=== PATIENT | female | born 1945 | race Caucasian/White ===

== ENCOUNTER 2017-02-19 14:32 | Emergency (ER) | payer MEDICARE, OTHER ==
[~2017-02-19] VITALS: Ht 160 cm; Wt 76.1 kg
[2017-02-19 14:35] VITALS: Ht 160 cm; Wt 76.1 kg
[2017-02-19] MEDS ORDERED: KETOROLAC 15 MG INJ IV STA (15:43)
[2017-02-19] MEDS ORDERED: SOD CHLORIDE 0.9% 500 ML IV STA (15:43)
--- NOTE | 2017-02-19 16:12 | RADRPT ---
PROCEDURE: XR Chest. CLINICAL INDICATION: 71-year-old female with abdominal pain. TECHNIQUE: Single frontal view of the chest was obtained. COMPARISON: None FINDINGS: The soft tissues are generous. There are osteophytes in the thoracic spine. The heart, cardiomedia stinal silhouette and hilar structures are normal. The pulmonary vasculature is normal. There is a left-sided aorta. The lungs are clear. The costophrenic angles are normal. IMPRESSION: 1. There is no evidence of active cardiopulmonary disease. 2. There is no evidence of pneumoperitoneum. 3. Spondylosis of the thoracic spine. RPTAT:AAJJ Physician Jordi Date Time Electronically viewed and signed by Physician Jordi on 02/19/2017 16:12 /
[2017-02-19 16:14] LABS: ADD UMIC NO; UR ASCORBIC ACID 40 mg/dL (NEGATIVE); UR BILIRUBIN (Dip) NEGATIVE (NEGATIVE); UR BLOOD (Dip) NEGATIVE (NEGATIVE); UR CLARITY SLIGHTLY CLOUDY (CLEAR); UR COLOR YELLOW (YELLOW); UR GLUCOSE (Dip) NEGATIVE (NEGATIVE); UR KETONES (Dip) NEGATIVE (NEGATIVE); UR LEUKOCYTE ESTERASE (Dip) NEGATIVE Leu/ul (NEGATIVE); UR NITRITE (Dip) NEGATIVE (NEGATIVE); UR RBC 2 /HPF (0-5); UR SPECIFIC GRAVITY (Dip) 1.008 (1.003-1.030); UR TOTAL PROTEIN (Dip) NEGATIVE (NEGATIVE); UR UROBILINOGEN (Dip) NEGATIVE (NEGATIVE)
[2017-02-19 16:31] LABS: BASOPHIL # 0.1 10^3/ul (0.0-0.1); BASOPHILS % 0.7 % (0.0-2.0); EOSINOPHILS # 0.7 10^3/ul (0.0-0.5); EOSINOPHILS % 6.3 % (0.0-7.0); HEMATOCRIT 39.7 % (37.0-47.0); HEMOGLOBIN 12.8 g/dl (12.0-16.0); LYMPHOCYTES # 1.8 10^3/ul (0.8-2.9); LYMPHOCYTES % 16.5 % (15.0-51.0); MEAN CORPUSCULAR HGB CONC 32.2 g/dl (32.0-37.0); MEAN CORPUSCULAR VOLUME 86.9 fl (82.0-101.0); MEAN PLATELET VOLUME 9.6 fl (7.4-10.4); MONOCYTE # 0.8 10^3/ul (0.3-0.9); MONOCYTES % 7.3 % (0.0-11.0); NEUTROPHIL # 7.4 10^3/ul (1.6-7.5); NEUTROPHILS % 68.9 % (39.0-77.0); PLATELET COUNT 269 10^3/UL (140-415); RED BLOOD COUNT 4.57 10^6/ul (4.20-5.40); RED CELL DISTRIBUTION WIDTH 12.6 % (11.5-14.5); WHITE BLOOD COUNT 10.7 10^3/ul (4.8-10.8)
[2017-02-19 16:53] LABS: ALANINE AMINOTRANSFERASE 37 IU/L (13-69); ALBUMIN 4.1 g/dl (3.3-4.9); ALBUMIN/GLOBULIN RATIO 1.02; ALKALINE PHOSPHATASE 78 IU/L (42-121); ANION GAP 15 (8-16); ASPARTATE AMINO TRANSFERASE 36 IU/L (15-46); BILIRUBIN,INDIRECT 0.5 mg/dl (0-1.1); BILIRUBIN,TOTAL 0.5 mg/dl (0.2-1.3); BLOOD UREA NITROGEN 16 mg/dl (7-20); CALCIUM 10.2 mg/dl (8.4-10.2); CARBON DIOXIDE 31 mmol/L (21-31); CHLORIDE 101 mmol/L (97-110); CREATININE 1.06 mg/dl (0.44-1.00); GLUCOSE 74 mg/dl (70-220); POTASSIUM 4.8 mmol/L (3.5-5.1); SODIUM 142 mmol/L (135-144); TOTAL PROTEIN 8.1 g/dl (6.1-8.1)
--- NOTE | 2017-02-19 17:03 | ERD ---
ER Documentation Chief Complaint Chief Complaint Complains of a cough x 3 days HPI 71-year-old woman complains of cough 3 days and tactile fever since last night. She states she is currently using antibiotics for recently diagnosed urinary tract infection. She denies dysuria or hematuria at this time, no chest pain or shortness of breath, no vomiting or diarrhea, no headache or blurry vision. ROS All systems reviewed and are negative except as per history of present illness. Medications Home Meds Active Scripts Ibuprofen* (Ibuprofen*) 600 Mg Tablet, 600 MG PO Q8 for PAIN AND/OR INFLAMMATION , #30 TAB Prov:BHAVNA SMITH MD 02/19/17 Albuterol Sulfate* (Proair HFA*) 8.5 Gm Hfa.aer.ad, 2 PUFF INH Q6H Y for COUGH, #1 INHALER Prov:BHAVNA SMITH MD 02/19/17 Reported Medications Econazole Nitrate (Econazole Nitrate) 15 Gm Cream..g., 15 GM TP BID 02/19/17 Metformin* (Glucophage*) 500 Mg Tab, 750 MG PO QPM, #60 TAB 02/19/17 Tramadol Hcl* (Ultram*) 50 Mg Tablet, 50 MG PO Q6H Y for PAIN, TAB 02/19/17 Latanoprost (Latanoprost) 2.5 Ml Drops, 1 DROP BOTH EYES QHS, #1 BOTTLE 02/19/17 Fluticasone Propionate* (Fluticasone Propionate* Nasal) 50 Mcg/Elim - 16 Gm Elim.susp, 2 SPRAYS NASAL DAILY, #1 BOTTLE TO EACH NOSTRIL 02/19/17 Losartan Potassium* (Losartan Potassium*) 50 Mg Tablet, 50 MG PO DAILY, TAB 02/19/17 Simvastatin* (Zocor*) 20 Mg Tablet, 20 MG PO QHS, #30 TAB 02/19/17 Aspirin* (Aspirin* Chew) 81 Mg Tab.chew, 81 MG PO DAILY, TAB.CHEW 02/19/17 Gabapentin* (Gabapentin*) 300 Mg Capsule, 300 MG PO BID, #90 CAP 02/19/17 NPH, Human Insulin Isophane (Humulin N Kwikpen) 100 Unit/1 Ml Insuln.pen, 20 UNIT SQ BID, EA 02/19/17 Calcium/Vitamin D (Oyster Shell W/Vit D) 1 Tab Tab, 1 TAB PO BID, TAB 02/19/17 Allergies Allergies: Coded Allergies: No Known Allergy (Unverified , 06/14/12) PMhx/Soc Dyslipidemia, diabetes mellitus, hypertension, gastritis History of Surgery: No Anesthesia Reaction: No Hx Neurological Disorder: No Hx Cardiac Disorders: Yes (HTN, HIGH CHOLESTEROL) Hx Miscellaneous Medical Probl: Yes (DIABETES, CHRONIC BACK PAIN) Hx Alcohol Use: No Hx Substance Use: No Hx Tobacco Use: No Smoking Status: Former smoker FmHx Family History: No diabetes Physical Exam Vitals Vital Signs Date Time Temp Pulse Resp B/P Pulse Ox O2 Delivery O2 Flow Rate FiO2 02/19/17 18:05 83 14 121/58 99 Room Air 02/19/17 16:31 72 16 152/57 97 Room Air 02/19/17 14:35 98.1 94 20 113/59 97 Physical Exam GENERAL: Well-developed, well-nourished, well-hydrated, in no apparent distress , looks nontoxic in appearance HEENT: Moist mucous membranes, pink conjunctiva, no cervical spine tenderness or step-off deformities, no goiter, no jaundice or icterus, extraocular movements intact without pain. No submandibular induration, and no pharyngeal erythema NEURO: Alert and oriented 3, cranial nerves II through XII intact bilaterally, pupils equal round reactive to light, no focal deficits or facial asymmetry, sensation intact distally Strength 5/5 in upper and lower extremities bilaterally CARDIAC: Regular rate and rhythm, no murmurs rubs or gallops LUNGS: Clear bilaterally no wheezing crackles or stridor ABDOMEN: Soft nontender, no guarding, no rigidity, no rebound, no psoas sign no obturator sign. Normoactive bowel sounds SKIN: Warm and dry to touch, no abrasions, contusions, or hematomas, no lacerations, no ecchymosis, no target lesions, and without ulcers EXTREMITIES: No clubbing cyanosis or edema, calves are bilaterally symmetrical, no Homans sign, no popliteal cord sign. Distal pulses equal and bilateral PSYCH: Normal affect without agitation or irritability Result Diagram: 02/19/17 1548 02/19/17 1548 Results 24 hrs Laboratory Tests Test 02/19/17 15:48 02/19/17 16:00 White Blood Count 10.710^3/ul Red Blood Count 4.5710^6/ul Hemoglobin 12.8g/dl Hematocrit 39.7% Mean Corpuscular Volume 86.9fl Mean Corpuscular Hemoglobin 28.0pg Mean Corpuscular Hemoglobin Concent 32.2g/dl Red Cell Distribution Width 12.6% Platelet Count 47022^3/UL Mean Platelet Volume 9.6fl Neutrophils % 68.9% Lymphocytes % 16.5% Monocytes % 7.3% Eosinophils % 6.3% Basophils % 0.7% Nucleated Red Blood Cells % 0.0/100WBC Neutrophils # 7.410^3/ul Lymphocytes # 1.810^3/ul Monocytes # 0.810^3/ul Eosinophils # 0.710^3/ul Basophils # 0.110^3/ul Nucleated Red Blood Cells # 0.010^3/ul Sodium Level 142mmol/L Potassium Level 4.8mmol/L Chloride Level 101mmol/L Carbon Dioxide Level 31mmol/L Anion Gap 15 Blood Urea Nitrogen 16mg/dl Creatinine 1.06mg/dl Glucose Level 74mg/dl Calcium Level 10.2mg/dl Total Bilirubin 0.5mg/dl Direct Bilirubin 0.00mg/dl Indirect Bilirubin 0.5mg/dl Aspartate Amino Transf (AST/SGOT) 36IU/L Alanine Aminotransferase (ALT/SGPT) 37IU/L Alkaline Phosphatase 78IU/L Troponin I < 0.012ng/ml Total Protein 8.1g/dl Albumin 4.1g/dl Globulin 4.00g/dl Albumin/Globulin Ratio 1.02 Lipase 102U/L Urine Color YELLOW Urine Clarity SLIGHTLY CLOUDY Urine pH 6.0 Urine Specific [place] 1.008 Urine Ketones NEGATIVEmg/dL Urine Nitrite NEGATIVEmg/dL Urine Bilirubin NEGATIVEmg/dL Urine Urobilinogen NEGATIVEmg/dL Urine Leukocyte Esterase NEGATIVELeu/ul Urine Microscopic RBC 2/HPF Urine Microscopic WBC 1/HPF Urine Hemoglobin NEGATIVEmg/dL Urine Glucose NEGATIVEmg/dL Urine Total Protein NEGATIVEmg/dl Current Medications Medications (Trade) Dose Ordered Sig/Ebony Route PRN Reason Start Time Stop Time Status Last Admin Dose Admin Sodium Chloride (NS) 500 ml @ 500 mls/hr Q1H STAT IV 02/19/17 15:43 02/19/17 16:42 DC 02/19/17 16:23 Ketorolac Tromethamine (Toradol) 15 mg ONCE STAT IV 02/19/17 15:43 02/19/17 15:44 DC 02/19/17 16:23 Procedures/MDM IV line was established patient was placed on product handler rhythm strip revealed a sinus rhythm at about 80 bpm with upright P and T waves. Patient was afebrile EKG performed, read by me revealed a normal sinus rhythm at 78 bpm, left axis deviation, narrow QRS complex, no concerning ST elevations or depressions noted. Chest X-ray 1V Interpreted by me: Soft Tissue: No acute abnormalities Bones: No acute abnormalities Mediastinum/Cardiac Silhouette/Lungs: No acute abnormalities CBC and electrolytes are normal, liver function tests are normal, troponin was negative. Urine analysis was negative for infection. I administered 1 L normal saline intravenously and Toradol 15 mg IV with good response. Patient also received albuterol 5 mg via nebulizer for cough. Differential diagnoses considered, included but not limited to acute coronary syndrome, pulmonary embolism, aortic dissection, abdominal aortic aneurysm, sepsis, stroke, meningitis, encephalitis, pneumonia, appendicitis, cholecystitis , bowel obstruction, pyelonephritis, nephrolithiasis, cystitis, as well as metabolic, hematologic, and electrolyte abnormalities. As well as abscess, cellulitis, fractures, and dislocations. Patient feels much better at this time, and vital signs are normal, symptoms have improved. I did give strict instructions to return to the ED if symptoms continue or worsen, patient will otherwise follow-up with primary care physician. Patient understood instructions and agreed to plan. Disclaimer: Inadvertent spelling and grammatical errors are likely due to EHR/ dictation software use and do not reflect on the overall quality of patient care. Also, please note that the electronic time recorded on this note does not necessarily reflect the actual time of the patient encounter. Departure Diagnosis: Primary Impression: Acute bronchitis Bronchitis organism: unspecified organism Qualified Code: J20.9 - Acute bronchitis, unspecified organism Condition: BHAVNA Morgan MD Feb 19, 2017 17:03
[2017-02-19] MEDS ORDERED: ALBU8.5H3 INH (17:05)
[2017-02-19] MEDS ORDERED: IBUP-1542 PO (17:05)
[2017-02-19 17:07] LABS: TROPONIN-I < 0.012 ng/ml (0.00-0.12)
[2017-02-19] MEDS ORDERED: OSCAL PO (17:48)
[2017-02-19] MEDS ORDERED: SIMV20TA PO (17:49)
[2017-02-19] MEDS ORDERED: GABA300C16 PO (17:49)
[2017-02-19] MEDS ORDERED: NPH,100I5 SQ (17:49)
[2017-02-19] MEDS ORDERED: ASPI81TA3 PO (17:49)
[2017-02-19] MEDS ORDERED: LOSA50TA6 PO (17:50)
[2017-02-19] MEDS ORDERED: FLUT16SP17 NASAL (17:51)
[2017-02-19] MEDS ORDERED: LATA2.5D2 BOTH EYES (17:51)
[2017-02-19] MEDS ORDERED: TRAM-40 PO (17:52)
[2017-02-19] MEDS ORDERED: METF500T4 PO (17:52)
[2017-02-19] MEDS ORDERED: ECON15CR TP (17:53)
[2017-02-19 18:05] VITALS: BP 121/58; PULSE 83; RESP 14
== END 2017-02-19 18:05 | disposition home or self-care (01) ==
LOC: E/R 14:32
DX: J20.9 Acute bronchitis, unspecified (principal); E11.9 Type 2 diabetes mellitus without complications; I10 Essential (primary) hypertension; Z79.82 Long term (current) use of aspirin; Z87.891 Personal history of nicotine dependence
CPT/HCPCS: 36415; 71010; 80053; 81001; 83690; 84484; 85025; 93005; 96374; 99285; J1885; J7040; 81003

== ENCOUNTER 2017-04-06 18:43 | Emergency (ER) | END 2017-04-07 02:10 | disposition home or self-care (01) ==

== ENCOUNTER 2017-06-16 11:39 | Emergency (ER) | END 2017-06-16 20:36 | disposition home or self-care (01) ==

== ENCOUNTER 2017-12-14 14:55 | Emergency (ER) | END 2017-12-14 19:17 | disposition home or self-care (01) ==

== ENCOUNTER 2018-07-31 10:03 | Observation (INO) | payer OTHER ==
[~2018-07-31] VITALS: Ht 142.2 cm; Wt 72.5 kg
[~2018-07-31 10:03] MED LIST: ACET325T33 PO; ALBU8.5H8 INH; ASPI-903 PO; CIPR500T4 PO; DIPH1TAB PO; ECON15CR TP; FLUT16SP17 NASAL; GABA300C16 PO; HYDR-4011 PO; IBUP-1542 PO; IBUP-1561 PO; LATA2.5D2 BOTH EYES; LOSA50TA14 PO; METF-849 PO; METR500T PO; NPH,100I5 SQ; OSCAL PO; SIMV20TA PO; TRAM50TA PO
[2018-07-31 10:12] VITALS: Ht 142.2 cm; Wt 72.5 kg
--- NOTE | 2018-07-31 11:17 | ERD ---
ER Documentation Chief Complaint Chief Complaint fainted HPI The patient is a 72-year-old female, presenting to the ER because she had a syncopal episode last night around 7 PM, sustained facial abrasion and a laceration in the in the upper lip, complains of left hip pain and bilateral knee discomfort. She did not go to the hospital yesterday, stated that she had 3 syncopal episode last year, denies seizure, neck pain, chest pain, dyspnea, abdominal pain, vomiting, dysuria, diarrhea, fecal/urinary incontinence. She smokes socially, denies drinking Past medical history: Diabetes mellitus, hypertension, dyslipidemia Past surgical history: None ROS All systems reviewed and are negative except as per history of present illness. Medications Home Meds Active Scripts Acetaminophen* (Tylenol*) 325 Mg Tablet, 1 TAB PO Q6 PRN for PAIN AND OR ELEVATED TEMP, #20 TAB Prov:DORA LORENZ PA-C 12/14/17 Ibuprofen* (Motrin*) 400 Mg Tab, 400 MG PO Q6H PRN for PAIN AND OR ELEVATED TEMP, #30 TAB Prov:DORA LORENZ PA-C 12/14/17 Metronidazole* (Flagyl*) 500 Mg Tablet, 500 MG PO TID for 7 Days, TAB Prov:NONA BAEZA DO 06/16/17 Ciprofloxacin Hcl* (Ciprofloxacin Hcl*) 500 Mg Tablet, 500 MG PO BID for 7 Days, TAB Prov:NONA BAEZA DO 06/16/17 Diphenoxylate HCl/Atropine (Lomotil 2.5-0.025 mg Tablet) 1 Each Tablet, 1 TAB PO Q6H PRN for DIARRHEA, #14 TAB Prov:NONA BAEZA DO 06/16/17 Hydrocodone/Acetaminophen ([place] 5-325 Tablet) 1 Each Tablet, 1 TAB PO Q6H PRN for PAIN, #20 TAB Prov:MARYANNE SIMONS 04/07/17 Ibuprofen* (Ibuprofen*) 600 Mg Tablet, 600 MG PO Q8 for PAIN AND/OR INFLAMMATION, #30 TAB Prov:BHAVNA SMITH MD 02/19/17 Albuterol Sulfate* (Proair HFA*) 8.5 Gm Hfa.aer.ad, 2 PUFF INH Q6H PRN for COUGH, #1 INHALER Prov:BHAVNA SMITH MD 02/19/17 Reported Medications Econazole Nitrate (Econazole Nitrate) 15 Gm Cream..g., 15 GM TP BID 02/19/17 Metformin* (Glucophage*) 500 Mg Tab, 750 MG PO QPM, #60 TAB 02/19/17 Tramadol Hcl* (Ultram*) 50 Mg Tablet, 50 MG PO Q6H PRN for PAIN, TAB 02/19/17 Latanoprost (Latanoprost) 2.5 Ml Drops, 1 DROP BOTH EYES QHS, #1 BOTTLE 02/19/17 Fluticasone Propionate* (Fluticasone Propionate* Nasal) 50 Mcg/Flagler - 16 Gm [place].susp, 2 SPRAYS NASAL DAILY, #1 BOTTLE TO EACH NOSTRIL 02/19/17 Losartan Potassium* (Losartan Potassium*) 50 Mg Tablet, 50 MG PO DAILY, TAB 02/19/17 Simvastatin* (Zocor*) 20 Mg Tablet, 20 MG PO QHS, #30 TAB 02/19/17 Aspirin* (Aspirin* Chew) 81 Mg Tab.chew, 81 MG PO DAILY, TAB.CHEW 02/19/17 Gabapentin* (Gabapentin*) 300 Mg Capsule, 300 MG PO BID, #90 CAP 02/19/17 NPH, Human Insulin Isophane (Humulin N Kwikpen) 100 Unit/1 Ml Insuln.pen, 20 UNIT SQ BID, EA 02/19/17 Calcium/Vitamin D (Oyster Shell W/Vit D) 1 Tab Tab, 1 TAB PO BID, TAB 02/19/17 Allergies Allergies: Coded Allergies: No Known Allergy (Unverified , 12/14/17) PMhx/Soc History of Surgery: Yes Anesthesia Reaction: No Hx Neurological Disorder: No Hx Respiratory Disorders: No Hx Cardiac Disorders: Yes (HTN;diabetes mellitus) Hx Psychiatric Problems: No Hx Miscellaneous Medical Probl: Yes Hx Alcohol Use: No Hx Substance Use: No Hx Tobacco Use: No Physical Exam Vitals Vital Signs Date Temp Pulse Resp B/P (MAP) Pulse Ox O2 O2 Flow FiO2 Time Delivery Rate 07/31/18 76 17 115/67 100 Room Air 12:29 (83) 07/31/18 97.6 98 18 121/71 98 10:12 (88) Physical Exam Const: No acute distress. Head: Atraumatic. Nasal and upper lip abrasion Eyes: Normal Conjunctiva. ENT: Normal External Ears, Nose and Mouth. Small laceration inner upper lip with mild edema Neck: Full range of motion. No meningismus. Resp: Clear to auscultation bilaterally. Cardio: Regular rate and rhythm. Abd: Soft, non distended, normal bowel sounds, non tender. Skin: No petechiae or rashes. Back: No midline or flank tenderness. Ext: Left hip mild tenderness, left knee abrasion Neur: Awake and alert. No focal deficit Psych: Normal Mood and Affect. Result Diagram: 07/31/18 1151 Results 24 hrs Laboratory Tests Test 07/31/18 11:49 07/31/18 11:51 Bedside Glucose 174 mg/dL White Blood Count 7.1 10^3/ul Red Blood Count 4.64 10^6/ul Hemoglobin 13.0 g/dl Hematocrit 39.6 % Mean Corpuscular Volume 85.3 fl Mean Corpuscular Hemoglobin 28.0 pg Mean Corpuscular Hemoglobin Concent 32.8 g/dl Red Cell Distribution Width 12.4 % Platelet Count 234 10^3/UL Mean Platelet Volume 10.5 fl Immature Granulocytes % 0.100 % Neutrophils % 62.3 % Lymphocytes % 27.3 % Monocytes % 7.2 % Eosinophils % 2.0 % Basophils % 1.1 % Nucleated Red Blood Cells % 0.0 /100WBC Immature Granulocytes # 0.010 10^3/ul Neutrophils # 4.4 10^3/ul Lymphocytes # 1.9 10^3/ul Monocytes # 0.5 10^3/ul Eosinophils # 0.1 10^3/ul Basophils # 0.1 10^3/ul Nucleated Red Blood Cells # 0.0 10^3/ul Current Medications Medications Dose Sig/Ebony Start Time Status Last (Trade) Ordered Route PRN Stop Time Admin Dose Reason Admin 650 mg Q6 PRN PO 07/31/18 Acetaminophen MILD 11:30 (Tylenol PAIN(1-3)OR Tab) ELEVATED TEMP Aspirin 81 mg DAILY PO 07/31/18 07/31/18 (Aspirin) 11:30 12:15 Gabapentin 300 mg BID PO 07/31/18 07/31/18 (Neurontin) 11:30 12:15 Latanoprost 1 drop QHS BOTH 07/31/18 (Xalatan) EYES 21:00 Losartan 50 mg DAILY PO 07/31/18 07/31/18 Potassium 11:30 12:16 (Cozaar) Metformin 750 mg QPM PO 07/31/18 HCl 21:00 (Glucophage) Tramadol 50 mg Q6H PRN 07/31/18 HCl PO PAIN 11:30 (Ultram) Insulin NOVOLOG WITH MEALS 07/31/18 07/31/18 Aspart *MODERATE* BEDTIME SC 12:00 12:20 (Novolog ALGORITHM Insulin Pen) Discontinue ONCE ONCE 07/31/18 DC Miscellaneous all previ... XX 12:00 07/31/18 12:01 Information (* Miscellaneous Pharmacy Order) 1 ea NOTE XX 07/31/18 Miscellaneous 12:30 Information Glucose 15 gm Q15M PRN 07/31/18 (Glutose) PO DECREASED 12:30 GLUCOSE Glucose 22.5 gm Q15M PRN 07/31/18 (Glutose) PO DECREASED 12:30 GLUCOSE Dextrose 25 ml Q15M PRN 07/31/18 (D50w IV DECREASED 12:30 Syringe) GLUCOSE Dextrose 50 ml Q15M PRN 07/31/18 (D50w IV DECREASED 12:30 Syringe) GLUCOSE Glucagon 1 mg Q15M PRN 07/31/18 (Glucagen) IM DECREASED 12:30 GLUCOSE Glucose 15 gm Q15M PRN 07/31/18 (Glutose) BUCCAL 12:30 DECREASED GLUCOSE Procedures/[place] [address] Radiology Main Line: [phone] DIAGNOSTIC IMAGING REPORT Patient: MURRAY SAMAYOA : 1945 Age: 72 Sex: F [facility]: [id number] [id number] DOS: 07/31/18 1126 Ordering MD: PINO CHEUNG MD Location: E/R Room/Bed: PROCEDURE: CT head CLINICAL INDICATION: Syncope TECHNIQUE: Contiguous 2.5 mm axial images were obtained from the vertex to the skull base. No intravenous contrast was administered. The calculated dose length product (DLP) = 634.23 mGy-cm. The CTDlvol = 39.64 mGy. One or more of the following dose reduction techniques were used: Automated exposure control, adjustment of the mA and or KV according to patient size, or use of iterative r econstruction technique. DICOM images are available. COMPARISON: 06/14/2012 FINDINGS: There is no acute intracranial hemorrhage or acute territorial infarct. No mass or mass effect is seen on this noncontrast study. Age appropriate cortical and central atrophy is seen. Ventricles are normal in size and configuration for the degree of atrophy. Mild small vessel ischemic changes in the periventricular white matter. Visualized paranasal sinuses are normally aerated. The bony calvarium is unremarkable. There is moderate bilateral carotid and vertebral artery calcification. IMPRESSION: 1. No acute intracranial hemorrhage or acute territorial infarct. 2. Age related atrophy and small vessel ischemic change. 3. No interval change RPTAT: HH .Bhavin Tom MD, Date Time Electronically viewed and signed by .Bhavin Tom MD, MD on 07/31/2018 12:35 .W/ CC: PINO CHEUNG MD [phone] [place] [address] Radiology Main Line: [phone] DIAGNOSTIC IMAGING REPORT Patient: MURRAY SAMAYOA : 1945 Age: 72 Sex: F MR #: [id number] DOS: 07/31/18 1126 Ordering MD: PINO CHEUNG MD Location: E/R Room/Bed: PROCEDURE: Chest xray. CLINICAL INDICATION: Syncope TECHNIQUE: A portable semiupright AP view of the chest was obtained. COMPARISON: 02/19/2017 FINDINGS: The cardiomediastinal silhouette is within normal limits and stable. The lungs are well expanded and show normal vascularity. No focal opacity, pleural effusion, or pneumothorax is identified. The skeletal structures and soft tissues are unremarkable. IMPRESSION: No evidence of an acute cardiopulmonary process. RPTAT:PP .Rosangela Christensen MD, Date Time Electronically viewed and signed by .Rosangela Christensen MD, on 07/31/2018 12:03 .K/ CC: PINO CHEUNG MD [phone] [place] [address] Radiology Main Line: [phone] DIAGNOSTIC IMAGING REPORT Patient: MURRAY SAMAYOA : 1945 Age: 72 Sex: F MR #: [id number] DOS: 07/31/18 1126 Ordering MD: PINO CHEUNG MD Location: E/R Room/Bed: PROCEDURE: XR Hip. CLINICAL INDICATION: Left hip pain following trauma. TECHNIQUE: AP and frog lateral views of the left hip were performed. COMPARISON: DR HUANG 12/14/2017; DR HUANG 04/06/2017 FINDINGS: The osseous structures demonstrate normal alignment and mineralization. No acute fracture or dislocation is identified. The femoral acetabular joint space is mildly narrowed. Evaluation of the left sacroiliac joint is limited by overlying bowel gas. The soft tissues are grossly unremarkable. IMPRESSION: Mild left femoral acetabular joint space narrowing. No significant interval change. RPTAT: HH .Leslie Kingston MD, Date Time Electronically viewed and signed by .Leslie Kingston MD, on 07/31/2018 12:12 .G/ CC: PINO CHEUNG MD [phone] EKG: Read by emergency physician Rate/Rhythm: Normal Sinus Rhythm 84 beats/min QRS, ST, T-waves: No ST elevation, no T inversion, LAD, septal Q's Impression: Abnormal EKG BMP, Troponin Pending MEDICAL MAKING DECISION: The patient is a 72-year-old female, presenting with acute syncope of unclear etiology. She will be admitted for further evaluation The differential diagnoses considered include but are not limited to arrhythmogenic right ventricular dysplasia, Brugada syndrome, left ventricular hypertrophy, pulmonary embolism, QT abnormality, Cskn-Okhmudzyt-Gnplj. Departure Diagnosis: Primary Impression: Syncope Additional Impressions: Facial abrasion Left hip pain Lip laceration Condition: Stable Comments I discussed the findings with the patient. I discussed the patient with Dr Mcdonald , who was made aware of the lab, the treatment, the patient condition. The patient is admitted to Tel Obs Disclaimer: Inadvertent spelling and grammatical errors are likely due to E HR/dictation software use and do not reflect on the overall quality of patient care. Also, please note that the electronic time recorded on this note does not necessarily reflect the actual time of the patient encounter. PINO CHEUNG MD Jul 31, 2018 11:17
[2018-07-31] MEDS ORDERED: ACETAMINOPHEN 325 MG TAB PO PRN (11:30)
[2018-07-31] MEDS ORDERED: traMADol 50 MG TAB PO PRN (11:30)
[2018-07-31] MEDS: GABAPENTIN 300 MG CAP PO SCH ×2 (12:15→21:20)
[2018-07-31] MEDS: ASPIRIN 81 MG TAB PO SCH (12:15)
[2018-07-31] MEDS: LOSARTAN 50 MG TAB PO SCH (12:16)
[2018-07-31] MEDS: INSULIN ASPART [NOVOLOG] 3 ML PEN SC SCH ×3 (12:20→21:28)
[2018-07-31] MEDS ORDERED: GLUCOSE GEL 15 GRAM TUBE BUCCAL PRN (12:30)
[2018-07-31] MEDS ORDERED: GLUCOSE GEL 15 GRAM TUBE PO PRN ×2 (12:30)
[2018-07-31] MEDS ORDERED: DEXTROSE 50% 50 ML SYRINGE IV PRN ×2 (12:30)
[2018-07-31] MEDS ORDERED: GLUCAGON 1 MG INJ IM PRN (12:30)
--- NOTE | 2018-07-31 14:45 | RADRPT ---
Echocardiogram Report Patient Name: MURRAY SAMAYOAPatient ID: [id number] : 1945 (72y 9m)Study Date: 07/31/2018 12:37:44 PM Gender: FAccession #: [id number] Tech: Fabricio Blandon ARMANDO Location: [facility] Ref.Physician: GIUSEPPE STEELE Height(Cm): BSA: Weight(Kg): Quality: AdequateAccount #: Procedures: Echocardiographic Report: Transthoracic echocardiogram with complete 2D, M-Mode, and doppler examination. Indications: Syncope. Measurements: 2D/M Mode Doppler Measurement Value Normal Range Measurement Value Normal Range LVIDd 2D 3.6 [ 3.8 - 5.2 ] cm AV Peak Suraj 1.3 [ 100.0 - 170.0 ] cm/sec LVIDs 2D 2.5 [ 2.2 - 3.5 ] cm AV Peak PG 7.0 [ 2.0 - 9.0 ] mmHg LVPWd 2D 1.3 [ 0.6 - 0.9 ] cm LVOT Peak Suraj 0.8 [ 70.0 - 110.0 ] cm/sec IVSd 2D 1.5 [ 0.6 - 0.9 ] cm LVOT Peak PG 2.0 [ 2.0 - 6.0 ] mmHg AoR Diam 2D 2.7 [ 2.3 - 3.1 ] cm MV E Peak Suraj 0.8 [ 60.0 - 130.0 ] cm/sec EDV 2D 54.1 [ 46.0 - 106.0 ] ml MV A Peak Suraj 1.1 [ 100.0 - 120.0 ] cm/sec ESV 2D 23.2 [ 14.0 - 42.0 ] ml MV E/A 0.7 [ 0.8 - 1.5 ] ratio EF 2D 57.1 [ 54.0 - 74.0 ] percent MV Decel Time 180 [ 104 - 258 ] msec LA Dimen 2D 3.2 [ 2.7 - 3.8 ] cm Lat E` Suraj 0.1 [ 10.0 - 15.0 ] cm/sec Lateral E/E` 9.8 [ 1.0 - 2.0 ] ratio MV E/A 0.7 [ 0.8 - 1.5 ] ratio Findings: Left Ventricle: Normal left ventricular systolic function. Normal left ventricular cavity size. Mild concentric left ventricular hypertrophy. Ejection fraction is visually estimated at 60 %. Tissue Doppler/Mitral Doppler indices are consistent with impaired relaxation (Stage I diastolic dysfunction). Right Ventricle: Normal right ventricular size. Normal right ventricular systolic function. Left Atrium: The left atrium is normal in size. Right Atrium: The right atrium is normal in size. Mitral Valve: Normal appearance of the mitral valve. Mild mitral annular calcification. Trace mitral regurgitation. Aortic Valve: Normal appearance of the aortic valve. No significant aortic stenosis or insufficiency. Tricuspid Valve: Normal appearance and function of the tricuspid valve with trace physiologic regurgitation. Pulmonic Valve: Normal pulmonic valve appearance. Pericardium: Normal pericardium with no significant pericardial effusion. Aorta: Normal aortic root. IVC: Normal size and normal respiratory collapse consistent with normal right atrial pressure. Conclusions: Normal left ventricular systolic function. Normal left ventricular cavity size. Mild concentric left ventricular hypertrophy. Ejection fraction is visually estimated at 60 %. Tissue Doppler/Mitral Doppler indices are consistent with impaired relaxation (Stage I diastolic dysfunction). Normal right ventricular size. Normal right ventricular systolic function. The left atrium is normal in size. The right atrium is normal in size. No significant valvular stenosis or regurgitation seen. Normal pericardium with no significant pericardial effusion. Electronically Signed By: Dangelo Jane 2018-07-31 14:44:22 PDT
[2018-07-31 17:20] VITALS: BP 143/64; PULSE 70; RESP 18
[2018-07-31 17:28] VITALS: BMI 35.8
[2018-07-31 17:30] VITALS: PULSE 74
--- NOTE | 2018-07-31 17:30 | HP ---
DATE OF ADMISSION: 07/31/2018 CHIEF COMPLAINT: Syncopal episodes. HISTORY OF PRESENT ILLNESS: A 72-year-old female with hypertension and type 2 diabetes mellitus, was walking outside the house the night prior to admission. She believed that she had a syncopal episod e and fell on her knees. She denies any chest pain. No palpitations. No shortness of breath or dys pnea on exertion. No focal weakness or numbness. The patient reports that she has 3 similar episode s within the last 2 years. She has not had the recent echocardiogram. PAST MEDICAL HISTORY: 1. Hypertension. 2. Type 2 diabetes mellitus. 3. Diabetic neuropathy. 4. Glaucoma. SOCIAL HISTORY: The patient denies tobacco or alcohol use. PHYSICAL EXAMINATION: GENERAL: Well-developed, well-nourished female who is in no apparent distress. VITAL SIGNS: Stable. She is afebrile. HEENT: Extraocular muscles are intact. Pupils are equal, round and reactive to light bilaterally. Sclerae are anicteric. Oropharynx is clear. There is abrasion over the nasal bridge and forehead. No laceration. NECK: Supple. No JVD, no carotid bruits. LUNGS: Clear to auscultation bilaterally. CARDIAC: Regular rate and rhythm. No murmurs, rubs or gallops. ABDOMEN: Soft, nontender, nondistended. Normoactive bowel sounds. EXTREMITIES: No clubbing, cyanosis or edema. NEUROLOGICAL: Nonfocal. ASSESSMENT: 1. A 72-year-old female with syncopal episodes. Head CT is unremarkable. 2. Hypertension, well controlled. 3. Type 2 diabetes mellitus. 4. Diabetic neuropathy. 5. Glaucoma. PLAN: 1. Place in tele observation. Resume selective home medications. 2. A 2D echo. 3. Plan of care was discussed with the patient. Dictated By: GIUSEPPE STEELE MD SK/NTS Conf#: [id number] DID#: [id number] CC: PINO CHEUNG MD;*End*
[2018-07-31 20:00] VITALS: BP 146/65; PULSE 65; RESP 19
[2018-07-31] MEDS ORDERED: LATANOPROST 0.005% 2.5 ML OPH BOTH EYES SCH (21:00)
[2018-07-31] MEDS ORDERED: metFORMIN 500 MG TAB PO SCH (21:00)
[2018-07-31 21:25] VITALS: PULSE 69
[2018-08-01] VITALS (8 sets, daily range): BP systolic 117–133; BP diastolic 58–68; PULSE 69–76; RESP 16–19
[2018-08-01] MEDS: INSULIN ASPART [NOVOLOG] 3 ML PEN SC SCH ×2 (07:25→11:50)
[2018-08-01] MEDS: LOSARTAN 50 MG TAB PO SCH (08:09)
[2018-08-01] MEDS: ASPIRIN 81 MG TAB PO SCH (08:09)
[2018-08-01] MEDS: GABAPENTIN 300 MG CAP PO SCH (08:10)
[2018-08-01] MEDS ORDERED: NPH,100I5 SQ (10:42)
[2018-08-01] MEDS ORDERED: METF-849 PO (10:42)
--- NOTE | 2018-08-01 10:43 | PDOCDIS ---
Discharge Instructions CONDITION [id number] Patient Condition: [id number] Good HOME CARE INSTRUCTIONS: [id number] Diet Instructions: [id number] Activity Restrictions: [id number] Slowly Increase Activity FOLLOW UP/APPOINTMENTS Follow-up Plan pcp 1 week GIUSEPPE STEELE MD Aug 01, 2018 10:43
--- NOTE | 2018-08-01 14:54 | DS ---
DATE OF ADMISSION: 07/31/2018 DATE OF DISCHARGE: DISCHARGE DIAGNOSES: 1. Syncopal episode. 2. Type 2 diabetes mellitus. 3. Possible hypoglycemic reaction. 4. Hypertension. 5. Hyperlipidemia. 6. Diabetic neuropathy. PROCEDURES DURING HOSPITALIZATION: A 2D echo. HOSPITAL COURSE: A 72-year-old female with type 2 diabetes mellitus and hypertension, [facility] with complaints of syncopal episode the night prior to admission. The patient was walk ing outside when she suddenly lost consciousness and fell onto her face. Initial evaluation was unre markable. A 2D echo did not show any valvular abnormalities. Ejection fraction was normal. The [facility] ie was, however, noted to have episodes of low blood sugar following admission. Blood sugar was al so low at 75 in the following morning. I suspect that the patient had hypoglycemic reaction which le d to the fall. I decreased her metformin to 500 mg twice daily and decrease her NPH to 15 units b.i. d. I asked the patient to adhere to diabetic diet and eat 3 meals of day. The patient is in stable condition for discharge. MEDICATIONS ON DISCHARGE: 1. Aspirin 81 mg daily. 2. Gabapentin 300 mg b.i.d. 3. Losartan 50 mg daily. 4. Simvastatin 20 mg at bedtime. 5. Tramadol 50 mg every 6 hours as needed. 6. Metformin 500 mg b.i.d. 7. NPH insulin 15 units b.i.d. FOLLOWUP: Follow up with PCP in 1 week. Dictated By: GIUSEPPE PEREZ/AKIKO Conf#: [id number] DID#: [id number]
== END 2018-08-01 16:37 | disposition home or self-care (01) ==
LOC: E/R 10:03 → TEL 13:59 → INTOOBSV 13:59 → EDBEDREQ 14:12
PROVIDERS: ADMIT Internal Medicine; ATTEND Internal Medicine
DX: R55 Syncope and collapse (principal); I10 Essential (primary) hypertension; E78.5 Hyperlipidemia, unspecified; E11.40 Type 2 diabetes mellitus with diabetic neuropathy, unspecified; H40.9 Unspecified glaucoma; S00.81XA Abrasion of other part of head, initial encounter; M25.552 Pain in left hip; Z79.4 Long term (current) use of insulin; Z79.82 Long term (current) use of aspirin; X58.XXXA Exposure to other specified factors, initial encounter
CPT/HCPCS: 36415; 70450; 71045; 73510; 80048; 82962; 84484; 85025; 93005; 93306; 96372; 99285; G0378; J1815; 99217